=== PATIENT | female | born 2000 | race Caucasian/White ===

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

== ENCOUNTER 2018-01-10 07:13 | Day surgery (SDC) | payer BC ==
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
[~2018-01-10 07:13] MED LIST: Buffered Lidocaine 0.9% SYRIN* 5 ML/SYR SYRINGE INTRADERM ONE; Dexamethasone IV* 4 MG/ML 1 ML (4 MG) IV SLOW PU ONE; Famotidine IV* 10 MG/ML 2 ML (20 mg) IV ONE
[2018-01-10] MEDS ORDERED: Midazolam* 1 MG/ML 2 ML VIAL (2 MG) ONE (07:25)
[2018-01-10] MEDS ORDERED: fentaNYL* 50 MCG/ML 2 ML VIAL (100 MCG VIAL) ONE (07:25)
[2018-01-10] MEDS ORDERED: Famotidine IV* 10 MG/ML 2 ML (20 mg) ONE (07:36)
[2018-01-10] MEDS ORDERED: Lidocaine 1% INJ* 10 MG/ML 30 ML SDV ONE (08:23)
[2018-01-10] MEDS ORDERED: Ketorolac INJ* 30 MG/ML 1 ML VIAL ONE (08:54)
[2018-01-10] MEDS ORDERED: Ondansetron INJ* 2 MG/ML VIAL ONE (08:54)
[2018-01-10] MEDS ORDERED: Propofol* 10 MG/ML 20 ML BTL IV PUSH ONE (08:54)
[2018-01-10] MEDS ORDERED: Lidocaine 2% PF * 5 ML VIAL ONE (08:54)
[2018-01-10] MEDS ORDERED: DiMENhydriNATE IV* 50 MG/ML VIAL IV PUSH PRN (09:22)
[2018-01-10] MEDS ORDERED: Acetaminophen TAB* 325 MG PO PRN (09:22)
[2018-01-10 09:39] VITALS: BP 111/68
--- NOTE | 2018-01-11 06:48 | OP ---
DATE OF OPERATION: 01/10/18 [facility] DATE OF : [birth year] SURGEON: Soumya Smith MD ROOM ATTENDANTS: ANDREW Hoyos ANESTHESIA: Local MAC. PRE-OP DIAGNOSIS: Right index finger mass. POST-OP DIAGNOSIS: Right index finger mass. OPERATIVE PROCEDURE: Removal, right index finger mass. INDICATIONS: Martita is a 17-year-old female with a painful mass on the radial aspect of her right index finger. She presents for removal. ESTIMATED BLOOD LOSS: Zero. TOURNIQUET TIME: About 10 minutes. DESCRIPTION OF PROCEDURE: The patient was brought to the operating room, was given a sedation anesthetic and a digital block with 10 cc of 1% plain lidocaine. The skin of her right hand and forearm was prepped and draped in the usual sterile fashion. The index finger was exsanguinated with a Tourni- Cot. I then made an incision longitudinal over the palpable and visible mass. I carefully dissected the fibrous mass away from the overlying skin and underlying soft tissue, was sent for pathology. The wound was irrigated and the skin edges were reapproximated with 4-0 nylon suture. The wound was dressed with Xeroform, 4x4, Webril, and Coban. The patient tolerated the procedure well and was brought to the recovery room in good condition. [id number]/[facility] #: [id number] GAGE
== END 2018-01-10 09:55 | disposition home or self-care (01) ==
LOC: OREAST 07:13
PROVIDERS: ATTEND Orthopaedic Surgery
DX: R22.31 Localized swelling, mass and lump, right upper limb (principal)
CPT/HCPCS: 81025; 88305; J1885; J2250; J2405; J2704; J3010

== ENCOUNTER 2018-02-14 22:19 | Emergency (ER) | payer BC ==
--- OUTSIDE RECORDS SUMMARY | 2018-02-14 23:09 | XMS REPORT ---
:2000 External Reference #:[id number] Author Organization [facility] Address [address] [address] Phone [phone] Care Team Providers Name Role Phone Millie Gutierrez FNP Primary Care Physician Unavailable Payers Type Date Identification Numbers Payment Provider Subscriber Health Maintenance Policy Number: [facility] SCHEDit ([facility]) [id number] PayID: [id number] [place] [id number] Problems Description No Information Family History Date Family Member(s) Problem(s) Comments General No Current Problems Social History Type Date Description Comments Lives With parents Occupation Student ETOH Use Denies alcohol use Smoking Patient has never smoked Exercise Type/Frequency Exercises sporadically Allergies, Adverse Reactions, Alerts Date Description Reaction Status Severity Comments 01/04/2018 NKDA active Medications Medication Date Status Form Strength Qnty SIG Indications Ordering Provider Tramadol Active Tablets 37.5-325mg 15tabs 1 tab by Soumya Hydrochloride/ Kiera Smith M.D. Acetaminophen every 4-6 hours as needed pain No Active Hx Unknown Medications 018 - 018 Vital Signs Date Vital Result Comment 01/19/2018 Height 63 inches 5'3" Weight 133.00 lb Heart Rate 73 /min Respiratory Rate 13 /min Body Temperature 98.1 F Pain Level 0 BMI (Body Mass Index) 23.6 kg/m2 Height Percentile 31 % Weight Percentile 59th 01/04/2018 Height 63 inches 5'3" Weight 133.00 lb Heart Rate 85 /min BP Systolic 110 mmHg BP Diastolic 60 mmHg Respiratory Rate 16 /min Body Temperature 98.0 F Pain Level 6 BMI (Body Mass Index) 23.6 kg/m2 Height Percentile 31 % Weight Percentile 59th 01/05/2011 Height 63 inches 5'3" Weight 135.00 lb BMI (Body Mass Index) 23.9 kg/m2 Blood Pressure Percentile 0 % Height Percentile 75 % Weight Percentile 92nd Results Test Date Test Result H/L Range Note Laboratory test 01/10/2018 Surgical Pathology SEE RESULT BELOW 1 finding 1 SEE RESULT BELOW Name: ALETHABLAINERAJIV : [address]: Soumya Smith MD Acct: [id number] Unit: [id number] AGE: 17 Location: [facility] Re01/10/18 SEX: F Status: [facility] SPEC: [id number] DONNELL: 01/10/18- SUBM DR: Soumya Smith MD REQ: [id number] RECD: [id number]/[id number] STATUS: SOUT _ ORDERED: LEVEL 4 FINAL DIAGNOSIS Right index finger, excision: -- Deep dermal tissue with michele-eccrine chronic inflammation. -- No evidence of neoplasia. PRE-OPERATIVE DIAGNOSIS Right index finger mass. GROSS DESCRIPTION The specimen is received in formalin labeled, Right Index Finger Mass, and consists of a 0.6 x 0.4 x 0.2 cm cruz-white irregular rubbery fibrous tissue fragment which is submitted entirely in one cassette. Signed (signature on file) Ludy Ibarra MD 05/24 1145 END OF REPORT DEPARTMENT OF PATHOLOGY, [address] [place] [address] Shaheen Agustin M.D. Director [facility] # [id number] Procedures Date CPT Code Description Status 01/10/2018 43649 Excision Tendon Sheath Ganglion /Or Joint Capsule Hand Completed Or Finger Encounters Type Date Location Provider CPT E/M Dx Office Visit 01/04/2018 [facility] Soumya Smith [id number] R22.31 10:30a Of [facility]bert Van Office Visit 01/05/2011 [facility] Violeta [id number] 923.20 9:00a Of Norbert Ayoub M.D. Plan of Care 01/19/2018 - Soumya Smith M.D.R22.31 Localized swelling, mass and lump, right upper limbFollow up:Follow up: As neededRecommendations:Massage scar 3- 4 times daily for 5 minutes with cocoa butter or Vitamin E lotion
[2018-02-15 02:30] VITALS: BP 111/52
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
[2018-02-15] MEDS ORDERED: Clobetasol 0.05% OINT* 30 GM TUBE TOPICAL SCH (09:00)
== END 2018-02-15 02:37 | disposition home or self-care (01) ==
LOC: ED 22:19
DX: L30.9 Dermatitis, unspecified (principal); F41.9 Anxiety disorder, unspecified; R21 Rash and other nonspecific skin eruption; R06.02 Shortness of breath
CPT/HCPCS: 99282

== ENCOUNTER 2018-03-20 18:57 | Emergency (ER) | payer BC, MEDICAID ==
[2018-03-20 19:54] VITALS: BP 141/70
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
== END 2018-03-20 20:30 | disposition home or self-care (01) ==
LOC: UCEAST 18:57
DX: S39.012A Strain of muscle, fascia and tendon of lower back, initial encounter (principal); X50.0XXA Overexertion from strenuous movement or load, initial encounter; Y93.89 Activity, other specified; Y92.9 Unspecified place or not applicable; Y99.0 Civilian activity done for income or pay
CPT/HCPCS: 99212; G0463

== ENCOUNTER 2018-04-06 12:40 | Emergency (ER) | payer BC, MEDICAID ==
[2018-04-06 13:55] VITALS: BP 110/70
[2018-04-06] MEDS ORDERED: Ibuprofen TAB* 600 MG PO ONE (14:07)
[2018-04-06] MEDS ORDERED: Dexamethasone IV* 4 MG/ML 1 ML (4 MG) IM ONE (14:08)
[2018-04-06] MEDS ORDERED: guaiFENesin LIQ* 100 MG/5 ML UDC PO ONE (14:08)
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
== END 2018-04-06 14:42 | disposition home or self-care (01) ==
LOC: UCEAST 12:40
DX: B34.9 Viral infection, unspecified (principal); Z82.49 Family history of ischemic heart disease and other diseases of the circulatory system; Z84.1 Family history of disorders of kidney and ureter
CPT/HCPCS: 96372; 99212; A9270-GY; G0463; J1100

== ENCOUNTER 2018-04-12 17:46 | Emergency (ER) | payer BC, MEDICAID ==
[2018-04-12 18:49] VITALS: BP 122/70
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
== END 2018-04-12 19:20 | disposition home or self-care (01) ==
LOC: UCEAST 17:46
DX: J01.90 Acute sinusitis, unspecified (principal); R68.83 Chills (without fever); Z82.49 Family history of ischemic heart disease and other diseases of the circulatory system; Z84.1 Family history of disorders of kidney and ureter
CPT/HCPCS: 99212; G0463

== ENCOUNTER 2018-05-30 12:18 | Emergency (ER) | payer BC, MEDICAID ==
[2018-05-30 14:43] VITALS: BP 121/72
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
--- NOTE | 2018-05-30 15:12 | RAD ---
Indication: Pain following crush injury at the level of the metatarsal bases. Comparison: No relevant prior exams available on the [facility] P[facility] for comparison. Technique: AP, lateral, and oblique views RIGHT foot. REPORT AND IMPRESSION: #. Soft tissue edema over the dorsum of the foot most prominent at the level of the metatarsals. Negative for subcutaneous emphysema. Negative for fracture or malalignment.
== END 2018-05-30 15:30 | disposition home or self-care (01) ==
LOC: UCEAST 12:18
DX: S90.31XA Contusion of right foot, initial encounter (principal); J45.909 Unspecified asthma, uncomplicated; W20.8XXA Other cause of strike by thrown, projected or falling object, initial encounter; Y92.9 Unspecified place or not applicable
CPT/HCPCS: 99212; G0463

== ENCOUNTER 2018-06-06 17:43 | Emergency (ER) | payer BC, MEDICAID ==
[2018-06-06 18:05] VITALS: BP 120/77
--- NOTE | 2018-06-06 19:34 | RAD ---
INDICATION: Right-sided headache x3 days COMPARISON: None. TECHNIQUE: Contiguous axial sections of the brain were obtained from the skull base to the vertex without contrast. FINDINGS: The ventricles, cisterns and sulci are within normal limits. The morris-white matter differentiation is adequately maintained and there is no sulcal effacement. No significant focal abnormality or mass effect is present. There is no evidence for intracranial hemorrhage. No significant focal osseous abnormality is present. There is a focus of frothy secretion in the lateral aspect of the right sphenoid sinus. The mastoid air cells are well aerated bilaterally. IMPRESSION: Mild right sphenoid sinusitis in this otherwise normal CT of the brain.
[2018-06-06] MEDS ORDERED: Ketorolac INJ* 30 MG/ML 1 ML VIAL IM ONE (19:40)
[2018-06-06] MEDS ORDERED: ceFUROXime TAB(*) 250 MG PO ONE (19:40)
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
[2018-06-07 11:09] LABS: ABS Basophils 0 10^3/ul (0-0.2); ABS Eosinophils 0.2 10^3/ul (0-0.6); ABS Lymphocytes 2.5 10^3/ul (1.0-4.8); ABS Monocytes 0.4 10^3/ul (0-0.8); ABS Neutrophils 3.8 10^3/ul (1.5-7.7); ABS Nucleated RBC 0 10^3/ul; Eosinophil % 2.5 % (0-6); Hematocrit 40 % (35-47); Hemoglobin 13.9 g/dl (12.0-16.0); Mean Corpuscular HGB Conc 35 g/dl (31-36); Mean Corpuscular Hemoglobin 29 pg (27-31); Mean Corpuscular Volume 84 fL (80-97); Mean Platelet Volume 8.1 um3 (7.4-10.4); Nucleated Red Blood Cells % 0; Platelet Count 297 10^3/ul (150-450); Red Cell Distribution Width 13 % (10.5-15); White Blood Count 6.9 10^3/ul (3.5-10.8)
== END 2018-06-06 20:05 | disposition home or self-care (01) ==
LOC: UCEAST 17:43
DX: J32.3 Chronic sphenoidal sinusitis (principal); M25.511 Pain in right shoulder; M25.512 Pain in left shoulder
CPT/HCPCS: 36415; 70450; 85025; 86308; 86618; 86664; 86665; 87651; 96372; 99202; G0463; J1885

== ENCOUNTER 2018-07-25 12:40 | Emergency (ER) | payer BC, MEDICAID ==
[2018-07-25 13:19] VITALS: BP 111/69
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
== END 2018-07-25 14:25 | disposition home or self-care (01) ==
LOC: UCEAST 12:40
DX: H66.91 Otitis media, unspecified, right ear (principal); R51 Headache
CPT/HCPCS: 99212; G0463

== ENCOUNTER 2018-07-26 18:12 | Emergency (ER) | payer BC, MEDICAID ==
[2018-07-26 18:41] VITALS: BP 122/67
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
== END 2018-07-26 19:19 | disposition home or self-care (01) ==
LOC: UCEAST 18:12
DX: R10.11 Right upper quadrant pain (principal); R11.0 Nausea
CPT/HCPCS: 99211; G0463

== ENCOUNTER 2018-08-21 09:45 | Emergency (ER) | payer BC, MEDICAID ==
[2018-08-21 11:05] VITALS: BP 118/74
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
== END 2018-08-21 11:52 | disposition home or self-care (01) ==
LOC: UCEAST 09:45
DX: J40 Bronchitis, not specified as acute or chronic (principal)
CPT/HCPCS: 99212; G0463

== ENCOUNTER 2018-09-26 11:34 | Emergency (ER) | payer BC ==
[2018-09-26 13:44] VITALS: BP 110/68
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
== END 2018-09-26 14:05 | disposition home or self-care (01) ==
LOC: UCEAST 11:34
DX: H69.90 Unspecified Eustachian tube disorder, unspecified ear (principal); J06.9 Acute upper respiratory infection, unspecified; J45.909 Unspecified asthma, uncomplicated
CPT/HCPCS: 99211; G0463